=== PATIENT | male | born 1995 | race Caucasian/White ===

== ENCOUNTER 2024-02-01 17:51 | Emergency (ER) | payer OTHER ==
[~2024-02-01] VITALS: Ht 180.3 cm; Wt 92.1 kg
[2024-02-01] MEDS ORDERED: Cephalexin Monohydrate 500 MG Cap PO ONE (19:35)
[2024-02-01] MEDS ORDERED: CEPH500 PO (19:36)
== END 2024-02-01 19:47 | disposition home or self-care (01) ==
LOC: ER 17:51
DX: J03.80 Acute tonsillitis due to other specified organisms (principal); B96.89 Other specified bacterial agents as the cause of diseases classified elsewhere; R59.0 Localized enlarged lymph nodes; Z88.0 Allergy status to penicillin
CPT/HCPCS: 87081; 87147; 87430; 99283; A9270